=== PATIENT | male | born 1995 | race Caucasian/White ===

== ENCOUNTER 2022-08-17 22:09 | Emergency (ER) | payer SELFPAY | END 2022-08-17 22:26 | LOC: MERGE 22:09 → MW.ED 22:09 | DX: Z02.89 Encounter for other administrative examinations (principal) | CPT/HCPCS: 99283 ==

== ENCOUNTER 2024-05-24 03:46 | Emergency (ER) | payer SELFPAY | END 2024-05-24 04:07 | disposition home or self-care (01) | LOC: MW.ED 03:46 | DX: R20.0 Anesthesia of skin (principal); Z90.49 Acquired absence of other specified parts of digestive tract; Z75.8 Other problems related to medical facilities and other health care | CPT/HCPCS: 99282; 99283 ==